=== PATIENT | male | born 1980 | race Caucasian/White ===

== ENCOUNTER 2017-01-26 04:45 | Emergency (ER) | payer SELFPAY ==
[~2017-01-26] VITALS: Ht 175.3 cm; Wt 61.5 kg
[2017-01-26 04:54] VITALS: Ht 175.3 cm; Wt 61.5 kg
[2017-01-26] MEDS ORDERED: AZITHROMYCIN 250 MG TAB PO ONE (05:30)
[2017-01-26] MEDS ORDERED: CEFTRIAXONE 250 MG INJ IM ONE (05:30)
[2017-01-26 05:36] LABS: URINE BLOOD (Dip) POC 2+ (NEGATIVE)
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
== END 2017-01-26 06:56 | disposition home or self-care (01) ==
LOC: FTE 04:45
DX: N34.2 Other urethritis (principal); F17.210 Nicotine dependence, cigarettes, uncomplicated
CPT/HCPCS: 81003; 87591; 96372; 99284; J0696